=== PATIENT | male | born 1985 | race Caucasian/White ===

== ENCOUNTER 2016-08-31 07:38 | Emergency (ER) | payer OTHER ==
[2016-08-31 07:44] VITALS: BP 151/70; PULSE 71; TEMP 98; BMI 29.9
--- NOTE | 2016-08-31 09:25 | PDOC ---
History of Present Illness - General Chief Complaint: Eye Problem Stated Complaint: RIGHT EYE INFECTION Time Seen by Provider: 08/31/16 08:41 History Source: Patient Exam Limitations: No Limitations - History of Present Illness Initial Comments: 08/31/16 09:23 My chief Complaint: Redness of right eye, tearing since yesterday History of present illness: Patient is a 30-year-old male with no significant medical history patient is here reporting discomfort in right eye with redness of sclera and tearing with photophobia since yesterday. 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 Patient denies any diplopia or blurring of his vision. Patient denies any pain with extraocular motion. Or glasses or contacts or googles at work. 08/31/16 13:50 Timing/Duration: getting worse Severity: mild Associated Symptoms: denies: denies symptoms Past History - Past Medical History Allergies/Adverse Reactions: Allergies Allergy/AdvReac Type Severity Reaction Status Date / Time No Known Allergies Allergy Verified 08/31/16 07:43 Home Medications: Ambulatory Orders NK [No Known Home Medication] 09/03/15 Other medical history: NONE - Psycho/Social/Smoking Cessation Hx Anxiety: No Suicidal Ideation: No Smoking Status: No Smoking History: Never smoked Have you smoked in the past 12 months: No Number of Cigarettes Smoked Daily: 0 Hx Alcohol Use: No Drug/Substance Use Hx: No Substance Use Type: None Review of Systems - Review of Systems Able to Perform ROS?: Yes Constitutional: No: Symptoms Reported HEENTM: Yes: Throat Pain (right sided throat discomfort). No: Throat Swelling, Mouth Pain Respiratory: No: Symptoms reported Cardiac (ROS): No: Symptoms Reported ABD/GI: No: Symptoms Reported : No: Symptoms Reported Musculoskeletal: No: Symptoms Reported Integumentary: No: Symptoms Reported Neurological: No: Symptoms reported *Physical Exam - Vital Signs Last Vital Signs Temp Pulse Resp BP Pulse Ox 98.0 F 71 20 151/70 98 08/31/16 07:41 08/31/16 07:41 08/31/16 07:41 08/31/16 07:41 08/31/16 07:41 - Physical Exam General Appearance: Yes: Appropriately Dressed HEENT: positive: TMs Normal, Photophobia, Nasal Congestion, Other (sclera injected, corneal abrasion at 12 noon, no foreign body noted). negative: Pharyngeal Erythema, Tonsillar Exudate, Tonsillar Erythema, Rhinorrhea Neck: negative: Lymphadenopathy (R), Lymphadenopathy (L) Respiratory/Chest: positive: Lungs Clear, Normal Breath Sounds. negative: Chest Tender, Respiratory Distress Cardiovascular: positive: Regular Rhythm, Regular Rate, S1, S2 Integumentary: positive: Normal Color Neurologic: positive: Alert, Normal Response, Responsive Procedures - Consent Consent obtained: From Patient - Eye Procedure Antibiotic Oinment/Drps Admin: right eye (tobramycin 0.3% 2 drops) Progress: 08/31/16 09:22 tetracine opth sheri 0.5% 2 drops applied with flurosecene stain Using slit lamp or ill abrasion noted at 12 noon No foreign body noted and no right eye Tearing of right eyebrow photophobia noted visual acuity right eye is 20/40 left eye is 20/25 both eyes are 20/25 Medical Decision Making - Medical Decision Making 08/31/16 09:25 Patient is a 30-year-old male with no significant medical history patient is here reporting discomfort in right eye with redness of sclera and tearing with photophobia since yesterday. 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 Patient denies any diplopia or blurring of his vision. Patient denies any pain with extraocular motion. Right eye corneal abrasion Plan: Tetracaine 0.3% 2 drops in the right eye now then every 6 hours 5 days Follow up with it infrastructure consultant as soon as possible at [facility] ophthalmology clinic at [phone] Instructed not to rub his right eye *DC/Admit/Observation/Transfer Diagnosis at time of Disposition: Corneal abrasion Qualifiers: Encounter type: initial encounter Laterality: right Qualified Code(s): S05.01XA - Injury of conjunctiva and corneal abrasion without foreign body, right eye, initial encounter - Discharge Dispostion Disposition: HOME Condition at time of disposition: Stable - Patient Instructions Additional Instructions: Do not rub your right eye Follow-up with it infrastructure consultant at [facility] ophthalmology clinic call [phone] Return to emergency room if symptoms worsen increased pain apply 2 drops of tobramycin opthalmic solution to right eye every 6 hours for 5 days Patient voiced understanding of discharge instructions and all questions were answered No frote hart aryan derecho Seguimiento con oftalmlogo en la clnica de oftalmologa de [facility] llame al [phone] Volver a la bill de emergencias si los sntomas empeoran el dolor Aplicar 2 gotas de tobramicina solucin oftlmica al aryan derecho cada 6 horas daisy 5 lopez Comprensin del paciente sobre las instrucciones de jorge y todas las preguntas fueron contestadas
[2016-08-31] MEDS ORDERED: TOBRA 0.3%/DEXAMETH 0.1% OPHTHALMIC SUSP 2.5 ML BTL OD ONE (09:35)
== END 2016-08-31 09:48 | disposition home or self-care (01) ==
LOC: JER 07:38 → JERFT 07:38
DX: S05.01XA Injury of conjunctiva and corneal abrasion without foreign body, right eye, initial encounter (principal); X58.XXXA Exposure to other specified factors, initial encounter; Y93.89 Activity, other specified; Y92.89 Other specified places as the place of occurrence of the external cause
CPT/HCPCS: 87070; 87077; 87430; 99281-25